=== PATIENT | male | born 1930 | race Caucasian/White ===

== ENCOUNTER 2016-03-13 21:10 | Inpatient (IN) | payer MEDICARE, BC ==
[2016-03-13 21:26] LABS: BASOPHILS % (AUTO) 1 % (0-3); EOSINOPHILS % (AUTO) 3 % (0-9); HEMATOCRIT 43 % (39-53); MEAN CORPUSCULAR HGB CONC 35.5 gm/dl (32.0-36.0); MONOCYTES % (AUTO) 15.5 % (0-12); NEUTROPHILS % (AUTO) 58.3 % (37-80)
[2016-03-13 21:30] LABS: CALCIUM 9.2 mg/dl (8.5-10.1); POTASSIUM 4.1 mMol/L (3.5-5.1)
[2016-03-13] MEDS: SODIUM CHLORIDE 0.9% 1000ML 1,000 ML IV SCH (22:00)
[2016-03-13] MEDS ORDERED: NITROGLYCERIN 0.4 MG TAB SL PRN (23:16)
[2016-03-13] MEDS ORDERED: ALBUTEROL HFA 60 PUFF/INHALER INH PRN (23:16)
[2016-03-13] MEDS ORDERED: PATIENT EDUCATION 1 MISC PRN (23:57)
[2016-03-14] MEDS ORDERED: ACETAMINOPHEN 325 MG PO PRN (01:08)
[2016-03-14] MEDS ORDERED: RANITIDINE HCL 150 MG TAB PO SCH (09:00)
[2016-03-14] MEDS: QUETIAPINE FUMARATE 25 MG TAB PO SCH (10:06)
[2016-03-14] MEDS: POTASSIUM CHLORIDE 10 MEQ TER PO SCH (10:08)
[2016-03-14] MEDS: CLOPIDOGREL 75 MG TAB PO SCH (10:09)
[2016-03-14] MEDS: FUROSEMIDE 20 MG TAB PO SCH (10:09)
[2016-03-14] MEDS: FAMOTIDINE 20 MG TAB PO SCH ×2 (10:32→20:37)
[2016-03-14] MEDS: SODIUM CHLORIDE 0.9% 1000ML 1,000 ML IV SCH (10:32)
[2016-03-14] MEDS: DULOXETINE HCL 30 MG CAPSULE.DR PO SCH ×2 (11:16→17:09)
[2016-03-14] MEDS: CEFDINIR 300 MG CAP PO SCH ×3 (11:17→20:52)
[2016-03-14] MEDS: ATORVASTATIN 10 MG TAB PO SCH (20:36)
[2016-03-14] MEDS: TEMAZEPAM 15MG 15 MG CAP PO PRN ×2 (21:16→22:44)
[2016-03-15] MEDS: SODIUM CHLORIDE 0.9% 1000ML 1,000 ML IV SCH ×2 (01:20→15:07)
[2016-03-15] MEDS: POTASSIUM CHLORIDE 10 MEQ TER PO SCH (09:10)
[2016-03-15] MEDS: DULOXETINE HCL 30 MG CAPSULE.DR PO SCH (09:10)
[2016-03-15] MEDS: FUROSEMIDE 20 MG TAB PO SCH (09:12)
[2016-03-15] MEDS: FAMOTIDINE 20 MG TAB PO SCH ×2 (09:13→20:35)
[2016-03-15] MEDS: CLOPIDOGREL 75 MG TAB PO SCH (09:13)
[2016-03-15] MEDS: QUETIAPINE FUMARATE 25 MG TAB PO SCH (09:13)
[2016-03-15] MEDS: CEFDINIR 300 MG CAP PO SCH ×2 (09:14→20:34)
[2016-03-15] MEDS: HEPARIN SODIUM 5000 U/ML SOL SC SCH ×2 (13:06→22:08)
[2016-03-15] MEDS: ASPIRIN 81 MG CHEWABLE CTB PO SCH (13:07)
[2016-03-15] MEDS: ATORVASTATIN 10 MG TAB PO SCH (20:34)
[2016-03-15] MEDS: TEMAZEPAM 15MG 15 MG CAP PO PRN (20:34)
[2016-03-16] MEDS: TEMAZEPAM 15MG 15 MG CAP PO PRN ×2 (01:21→20:05)
[2016-03-16] MEDS: SODIUM CHLORIDE 0.9% 1000ML 1,000 ML IV SCH (04:32)
[2016-03-16 08:00] LABS: ALBUMIN 3.3 gm/dl (3.4-5.0); CALCIUM 8.8 mg/dl (8.5-10.1); POTASSIUM 3.9 mMol/L (3.5-5.1)
[2016-03-16 08:05] LABS: BASOPHILS % (AUTO) 1 % (0-3); EOSINOPHILS % (AUTO) 7 % (0-9); HEMATOCRIT 41 % (39-53); MEAN CORPUSCULAR HGB CONC 34.5 gm/dl (32.0-36.0); MONOCYTES % (AUTO) 13.4 % (0-12); NEUTROPHILS % (AUTO) 53.9 % (37-80)
[2016-03-16] MEDS ORDERED: DOCUSATE SODIUM 100 MG SGL PO PRN (08:10)
[2016-03-16] MEDS: POTASSIUM CHLORIDE 10 MEQ TER PO SCH (09:04)
[2016-03-16] MEDS: DULOXETINE HCL 30 MG CAPSULE.DR PO SCH (09:04)
[2016-03-16] MEDS: FUROSEMIDE 20 MG TAB PO SCH (09:05)
[2016-03-16] MEDS: CEFDINIR 300 MG CAP PO SCH ×2 (09:06→20:05)
[2016-03-16] MEDS: CLOPIDOGREL 75 MG TAB PO SCH (09:06)
[2016-03-16] MEDS: FAMOTIDINE 20 MG TAB PO SCH ×2 (09:07→20:05)
[2016-03-16] MEDS: QUETIAPINE FUMARATE 25 MG TAB PO SCH (09:07)
[2016-03-16] MEDS: ASPIRIN 81 MG CHEWABLE CTB PO SCH (09:18)
[2016-03-16] MEDS: SENNOSIDES A AND B 8.6 MG TAB PO SCH ×2 (09:18→20:05)
[2016-03-16] MEDS: HEPARIN SODIUM 5000 U/ML SOL SC SCH ×2 (11:30→22:37)
[2016-03-16] MEDS: SODIUM CHLORIDE 0.9% FLUSH 10 ML SOL IV PRN ×2 (13:17→20:06)
[2016-03-16] MEDS: ATORVASTATIN 10 MG TAB PO SCH (20:04)
[2016-03-17] MEDS: TEMAZEPAM 15MG 15 MG CAP PO PRN (00:18)
[2016-03-17 00:25] VITALS: RESP 20
[2016-03-17 08:09] VITALS: BP 149/79; PULSE 60; TEMP 97.6; O2SAT 92
[2016-03-17] MEDS: FAMOTIDINE 20 MG TAB PO SCH (08:41)
[2016-03-17] MEDS: CEFDINIR 300 MG CAP PO SCH (08:41)
[2016-03-17] MEDS: POTASSIUM CHLORIDE 10 MEQ TER PO SCH (08:41)
[2016-03-17] MEDS: QUETIAPINE FUMARATE 25 MG TAB PO SCH (08:42)
[2016-03-17] MEDS: CLOPIDOGREL 75 MG TAB PO SCH (08:42)
[2016-03-17] MEDS: DULOXETINE HCL 30 MG CAPSULE.DR PO SCH (08:42)
[2016-03-17] MEDS: FUROSEMIDE 20 MG TAB PO SCH (08:43)
[2016-03-17] MEDS: ASPIRIN 81 MG CHEWABLE CTB PO SCH (08:46)
[2016-03-17] MEDS: SENNOSIDES A AND B 8.6 MG TAB PO SCH (08:46)
[2016-03-17] MEDS: HEPARIN SODIUM 5000 U/ML SOL SC SCH (10:32)
== END 2016-03-17 13:55 | DRG 65 ==
LOC: ED 21:10 → ACUTE CARE 22:46 → OBSVTOIN 03-14 12:00
PROVIDERS: ADMIT Family Medicine; ATTEND Family Medicine
DX: I63.9 Cerebral infarction, unspecified (principal); R53.1 Weakness; G81.94 Hemiplegia, unspecified affecting left nondominant side; F05 Delirium due to known physiological condition; R29.704 NIHSS score 4; R47.1 Dysarthria and anarthria; R29.810 Facial weakness; R13.10 Dysphagia, unspecified; K59.00 Constipation, unspecified
CPT/HCPCS: 36415; 70450; 70551; 80048; 80053; 85025; 85610; 85730; 93005; 93012; 96365; 99232; 99233; 99291; J1644

== ENCOUNTER 2016-04-16 07:41 | Inpatient (IN) | payer MEDICARE, BC ==
[2016-04-16] MEDS ORDERED: ACETAMINOPHEN 325 MG PO ONE ×2 (08:19)
[2016-04-16] MEDS ORDERED: ACETAMINOPHEN 325 MG ONE (08:20)
[2016-04-16 08:34] LABS: HEMATOCRIT 46 % (39-53); MEAN CORPUSCULAR VOLUME 86 fL (80-100)
[2016-04-16 08:48] LABS: BASOPHILS % (MANUAL) 0 % (0-3); EOSINOPHILS % (MANUAL) 0 % (0-9); LYMPHOCYTES % (MANUAL) 13 % (10-50); OVALOCYTES PRESENT
[2016-04-16 08:51] LABS: ALBUMIN 3.1 gm/dl (3.4-5.0); CALCIUM 9.2 mg/dl (8.5-10.1); POTASSIUM 4.2 mMol/L (3.5-5.1)
[2016-04-16] MEDS ORDERED: MORPHINE SULFATE 10 MG/ML SOL IV ONE (08:53)
[2016-04-16] MEDS: SODIUM CHLORIDE 0.9% FLUSH 10 ML SOL IV PRN ×2 (09:00→10:51)
[2016-04-16] MEDS ORDERED: MORPHINE SULFATE 10 MG/ML SOL ONE (09:05)
[2016-04-16 09:16] LABS: ABG PH 7.45 (7.35-7.45)
[2016-04-16] MEDS ORDERED: ALBUTEROL/IPRATROPIUM 1 VIAL SOL INH ONE (09:24)
[2016-04-16] MEDS ORDERED: ALBUTEROL/IPRATROPIUM 1 VIAL SOL ONE (09:25)
[2016-04-16] MEDS ORDERED: ALBUTEROL NEB SOL 2.5MG/3ML 1 VIAL SOL NEB PRN (09:55)
[2016-04-16] MEDS ORDERED: SOLUMEDROL 125 MG/2 ML 125 MG/2 ML PDS IV ONE (11:00)
[2016-04-16] MEDS ORDERED: ACETAMINOPHEN 325 MG PO PRN (11:45)
[2016-04-16] MEDS ORDERED: ALBUTEROL/IPRATROPIUM 1 VIAL SOL INH SCH (11:45)
[2016-04-16] MEDS: ALBUTEROL/IPRATROPIUM 1 VIAL SOL INH SCH ×3 (12:59→20:44)
[2016-04-16] MEDS: ENOXAPARIN 80 MG SOL SC SCH (14:28)
[2016-04-16 18:27] LABS: APPEARANCE,URINE Clear; BILIRUBIN,URINE NEGATIVE (NEGATIVE); COLOR,URINE Dark yellow; GLUCOSE, URINE (UA) NEGATIVE (NEGATIVE); KETONES,URINE NEGATIVE (NEGATIVE); LEUKOCYTE ESTERASE ,URINE NEGATIVE (NEGATIVE); NITRATE,URINE NEGATIVE (NEGATIVE); OCCULT BLOOD,URINE NEGATIVE (NEG-TRACE)
[2016-04-16 18:46] LABS: RBC,URINE NEGATIVE (0-3AV/HPF); WBC,URINE NEGATIVE (0-5AV/HPF)
[2016-04-16] MEDS: FAMOTIDINE 20 MG TAB PO SCH (20:45)
[2016-04-16] MEDS: ATORVASTATIN 10 MG TAB PO SCH (20:45)
[2016-04-16] MEDS: QUETIAPINE FUMARATE 25 MG TAB PO SCH (20:45)
[2016-04-17] MEDS: ENOXAPARIN 80 MG SOL SC SCH ×2 (00:59→13:58)
[2016-04-17] MEDS: SODIUM CHLORIDE 0.9% FLUSH 10 ML SOL IV PRN (06:03)
[2016-04-17] MEDS ORDERED: PATIENT EDUCATION 1 MISC PRN (08:44)
[2016-04-17] MEDS ORDERED: ENOXAPARIN 80 MG SOL SC SCH (09:00)
[2016-04-17] MEDS: FUROSEMIDE 20 MG TAB PO SCH (09:29)
[2016-04-17] MEDS: POTASSIUM CHLORIDE 10 MEQ TER PO SCH (09:29)
[2016-04-17] MEDS: DULOXETINE 30 MG PO SCH (09:29)
[2016-04-17] MEDS: FAMOTIDINE 20 MG TAB PO SCH ×2 (09:30→20:26)
[2016-04-17] MEDS: ALBUTEROL/IPRATROPIUM 1 VIAL SOL INH SCH ×4 (09:33→20:21)
[2016-04-17] MEDS: SODIUM CHLORIDE 0.9% FLUSH 10 ML SOL IV SCH ×2 (10:39→18:07)
[2016-04-17] MEDS ORDERED: WARFARIN SODIUM 5 MG TAB PO SCH (18:00)
[2016-04-17] MEDS: ATORVASTATIN 10 MG TAB PO SCH (20:23)
[2016-04-17] MEDS: QUETIAPINE FUMARATE 25 MG TAB PO SCH (20:26)
[2016-04-18] MEDS: ENOXAPARIN 80 MG SOL SC SCH ×2 (01:48→12:30)
[2016-04-18] MEDS: SODIUM CHLORIDE 0.9% FLUSH 10 ML SOL IV SCH ×2 (01:48→09:34)
[2016-04-18 07:06] LABS: CALCIUM 8.6 mg/dl (8.5-10.1); POTASSIUM 3.8 mMol/L (3.5-5.1)
[2016-04-18 07:24] LABS: BASOPHILS % (AUTO) 1 % (0-3); EOSINOPHILS % (AUTO) 0 % (0-9); HEMATOCRIT 38 % (39-53); MEAN CORPUSCULAR HGB CONC 36.3 gm/dl (32.0-36.0); MEAN CORPUSCULAR VOLUME 86 fL (80-100); MONOCYTES % (AUTO) 11.6 % (0-12); NEUTROPHILS % (AUTO) 74.9 % (37-80)
[2016-04-18 08:42] VITALS: RESP 20; TEMP 97.2
[2016-04-18] MEDS: DULOXETINE 30 MG PO SCH (09:15)
[2016-04-18] MEDS: FUROSEMIDE 20 MG TAB PO SCH (09:16)
[2016-04-18] MEDS: POTASSIUM CHLORIDE 10 MEQ TER PO SCH (09:16)
[2016-04-18] MEDS: ALBUTEROL/IPRATROPIUM 1 VIAL SOL INH SCH ×2 (09:16→12:31)
[2016-04-18] MEDS: FAMOTIDINE 20 MG TAB PO SCH (09:16)
[2016-04-18 10:48] VITALS: BP 130/81
[2016-04-18 12:40] VITALS: PULSE 72; O2SAT 96
== END 2016-04-18 12:55 | DRG 176 ==
LOC: ED 07:41 → UNDOADMIN 09:53 → ACUTE CARE 09:53
PROVIDERS: ADMIT Family Medicine; ATTEND Family Medicine
DX: R06.00 Dyspnea, unspecified (principal); J44.9 Chronic obstructive pulmonary disease, unspecified; R50.9 Fever, unspecified; R07.81 Pleurodynia; R06.02 Shortness of breath; I26.99 Other pulmonary embolism without acute cor pulmonale
CPT/HCPCS: 36415; 36600; 71010; 71275; 80048; 80053; 81001; 82150; 82803; 83880; 84484; 85007; 85025; 85027; 85378; 85610; 87040; 87804; 93005; 93012; 94150; 94640; 94760; 96374; 99284; 99291; J1650; J2270; J2930; J7603; J7620

== ENCOUNTER 2016-12-06 22:27 | Observation (INO) | payer MEDICARE, BC ==
[2016-12-06 23:30] LABS: BASOPHILS % (AUTO) 1 % (0-3); EOSINOPHILS % (AUTO) 6 % (0-9); HEMATOCRIT 40 % (39-53); MEAN CORPUSCULAR HGB CONC 34.5 gm/dl (32.0-36.0); MEAN CORPUSCULAR VOLUME 87 fL (80-100); MONOCYTES % (AUTO) 14.1 % (0-12); NEUTROPHILS % (AUTO) 57.5 % (37-80)
[2016-12-06 23:55] LABS: ALBUMIN 3.3 gm/dl (3.4-5.0); CALCIUM 8.7 mg/dl (8.5-10.1)
[2016-12-07] MEDS ORDERED: SENNOSIDES A AND B 8.6 MG TAB PO PRN (01:07)
[2016-12-07] MEDS ORDERED: HYPROMELLOSE EACHEYE PRN (01:07)
[2016-12-07] MEDS ORDERED: MAGNESIUM HYDROXIDE 30 ML SUS PO PRN (01:07)
[2016-12-07] MEDS ORDERED: DEXTRAN EACHEYE PRN (01:07)
[2016-12-07] MEDS ORDERED: WARFARIN SODIUM 7.5 MG TAB PO SCH ×2 (01:15→18:00)
[2016-12-07 07:29] LABS: BASOPHILS % (AUTO) 1 % (0-3); EOSINOPHILS % (AUTO) 4 % (0-9); HEMATOCRIT 40 % (39-53); MEAN CORPUSCULAR HGB CONC 34.7 gm/dl (32.0-36.0); MEAN CORPUSCULAR VOLUME 87 fL (80-100); MONOCYTES % (AUTO) 11.5 % (0-12); NEUTROPHILS % (AUTO) 72.7 % (37-80)
[2016-12-07 07:48] LABS: CALCIUM 8.6 mg/dl (8.5-10.1); GLOM FILT RATE 76 mL/min (>60); SODIUM 142 mMol/L (136-145)
[2016-12-07] MEDS ORDERED: [UNRECOGNIZED DRUG - OTHER] PO SCH (09:00)
[2016-12-07] MEDS ORDERED: RANITIDINE HCL 150 MG TAB PO SCH (09:00)
[2016-12-07] MEDS ORDERED: DOCUSATE SODIUM PO SCH (09:00)
[2016-12-07] MEDS: SENNOSIDES A AND B 8.6 MG TAB PO SCH ×2 (09:03→21:43)
[2016-12-07] MEDS: DULOXETINE HCL 30 MG CAPSULE.DR PO SCH (09:03)
[2016-12-07] MEDS: FAMOTIDINE 20 MG TAB PO SCH ×2 (09:03→21:43)
[2016-12-07] MEDS: ACETAMINOPHEN 325 MG PO SCH ×4 (09:03→21:44)
[2016-12-07] MEDS: ZINC PO SCH ×2 (09:04→21:43)
[2016-12-07] MEDS: [UNRECOGNIZED DRUG - OTHER] PO SCH ×2 (09:04→21:43)
[2016-12-07] MEDS: COPPER PO SCH ×2 (09:04→21:43)
[2016-12-07] MEDS: VIT C PO SCH ×2 (09:04→21:43)
[2016-12-07] MEDS: VIT E PO SCH ×2 (09:04→21:43)
[2016-12-07] MEDS: VIT A PO SCH ×2 (09:04→21:43)
[2016-12-07] MEDS ORDERED: ENOXAPARIN 40 MG SOL SC ONE (10:45)
[2016-12-07] MEDS ORDERED: WARFARIN SODIUM 5 MG TAB PO ONE (10:45)
[2016-12-07] MEDS ORDERED: SODIUM CHLORIDE 0.9% 100 ML 100 ML IV ONE ×3 (11:56→22:43)
[2016-12-07] MEDS ORDERED: AMPICILLIN/SULBACTAM 3 GM PDS ONE ×3 (11:56→22:43)
[2016-12-07] MEDS: SODIUM CHLORIDE 0.9% FLUSH 10 ML SOL IV SCH ×5 (12:00→22:55)
[2016-12-07] MEDS: AMPICILLIN/SULBACTAM 3 GM PDS 3 GM in SODIUM CHLORIDE 0.9% 100 ML 100 ML IV SCH ×3 (12:19→22:54)
[2016-12-07] MEDS ORDERED: QUETIAPINE FUMARATE 25 MG TAB PO SCH (21:00)
[2016-12-07] MEDS ORDERED: ATORVASTATIN CALCIUM 80 MG TAB PO SCH (21:00)
[2016-12-07] MEDS ORDERED: ATORVASTATIN 10 MG TAB ONE (21:41)
[2016-12-08] MEDS: SODIUM CHLORIDE 0.9% FLUSH 10 ML SOL IV SCH ×2 (04:35→11:18)
[2016-12-08] MEDS: AMPICILLIN/SULBACTAM 3 GM PDS 3 GM in SODIUM CHLORIDE 0.9% 100 ML 100 ML IV SCH ×2 (04:35→11:18)
[2016-12-08 07:32] LABS: BASOPHILS % (AUTO) 1 % (0-3); EOSINOPHILS % (AUTO) 9 % (0-9); HEMATOCRIT 40 % (39-53); MEAN CORPUSCULAR HGB CONC 35.3 gm/dl (32.0-36.0); MEAN CORPUSCULAR VOLUME 87 fL (80-100); MONOCYTES % (AUTO) 15.4 % (0-12); NEUTROPHILS % (AUTO) 47.1 % (37-80)
[2016-12-08 08:03] VITALS: RESP 20; TEMP 98.3
[2016-12-08] MEDS: DULOXETINE HCL 30 MG CAPSULE.DR PO SCH (09:45)
[2016-12-08] MEDS: FAMOTIDINE 20 MG TAB PO SCH (09:46)
[2016-12-08] MEDS: VIT C PO SCH (09:47)
[2016-12-08] MEDS: VIT A PO SCH (09:47)
[2016-12-08] MEDS: ZINC PO SCH (09:47)
[2016-12-08] MEDS: SENNOSIDES A AND B 8.6 MG TAB PO SCH (09:47)
[2016-12-08] MEDS: [UNRECOGNIZED DRUG - OTHER] PO SCH (09:47)
[2016-12-08] MEDS: VIT E PO SCH (09:47)
[2016-12-08] MEDS: ACETAMINOPHEN 325 MG PO SCH ×2 (09:47→13:49)
[2016-12-08] MEDS: COPPER PO SCH (09:47)
[2016-12-08] MEDS ORDERED: PEG-400/PROPYLENE GLYCOL 1 DROP SOL EACHEYE PRN (10:45)
[2016-12-08] MEDS ORDERED: METOPROLOL SUCCINATE 50 MG TER PO SCH (10:45)
[2016-12-08 10:46] VITALS: BP 147/86; PULSE 41; O2SAT 92
[2016-12-08] MEDS ORDERED: PATIENT EDUCATION 1 MISC PRN (11:04)
[2016-12-08] MEDS ORDERED: INFLUENZA HIGH DOSE VACCINE 0.5 ML SUS IM ONE (16:13)
[2016-12-08] MEDS ORDERED: ATORVASTATIN 10 MG TAB PO SCH (21:00)
[2016-12-09] MEDS ORDERED: WARFARIN SODIUM 5 MG TAB PO SCH ×2 (01:07→18:00)
== END 2016-12-08 17:00 | DRG 206 ==
LOC: ED 22:27 → ACUTE CARE 12-07 00:29
PROVIDERS: ADMIT Emergency Medicine; ATTEND Emergency Medicine
DX: T17.928A Food in respiratory tract, part unspecified causing other injury, initial encounter (principal); I50.9 Heart failure, unspecified; R00.1 Bradycardia, unspecified; I44.0 Atrioventricular block, first degree; R79.82 Elevated C-reactive protein (CRP); Z79.01 Long term (current) use of anticoagulants; T45.7X6A Underdosing of anticoagulant antagonist, vitamin K and other coagulants, initial encounter; Z91.138 Patient's unintentional underdosing of medication regimen for other reason
CPT/HCPCS: 36415; 71010; 80048; 80053; 83880; 84484; 85025; 85610; 90662; 93005; 93012; 94762; 99224; 99284; J0295; J1650; G0008

== ENCOUNTER 2016-12-11 09:03 | Emergency (ER) | payer MEDICARE, BC ==
[2016-12-11 10:09] LABS: BASOPHILS % (AUTO) 1 % (0-3); EOSINOPHILS % (AUTO) 6 % (0-9); HEMATOCRIT 43 % (39-53); MEAN CORPUSCULAR VOLUME 88 fL (80-100); MONOCYTES % (AUTO) 15.7 % (0-12); NEUTROPHILS % (AUTO) 69.4 % (37-80)
[2016-12-11 10:20] LABS: CALCIUM 8.4 mg/dl (8.5-10.1); GLOM FILT RATE 74 mL/min (>60); POTASSIUM 3.9 mMol/L (3.5-5.1); SODIUM 141 mMol/L (136-145)
[2016-12-11 11:10] VITALS: TEMP 98.7
[2016-12-11 11:43] VITALS: RESP 20; O2SAT 92
[2016-12-11 11:49] VITALS: BP 124/65; PULSE 67
== END 2016-12-11 11:30 | disposition short-term general hospital (02) | DRG 310 ==
LOC: ED 09:03
DX: R00.1 Bradycardia, unspecified (principal); I50.9 Heart failure, unspecified; Z79.01 Long term (current) use of anticoagulants
CPT/HCPCS: 36415; 71010; 80048; 83880; 84484; 85025; 85610; 93005; 99284

== ENCOUNTER 2016-12-15 16:42 | Emergency (ER) | payer MEDICARE, BC ==
[2016-12-15 17:28] VITALS: BP 154/69; TEMP 97.6
[2016-12-15 18:26] VITALS: PULSE 77; RESP 23; O2SAT 92
== END 2016-12-15 18:12 | DRG 316 ==
LOC: ED 16:42
DX: R00.8 Other abnormalities of heart beat (principal)
CPT/HCPCS: 93005; 99283

== ENCOUNTER 2017-07-02 08:31 | Outpatient (CLI) | payer MEDICARE, BC ==
[2016-12-15 18:26] VITALS: O2SAT 92
== END 2017-07-02 08:32 | disposition home or self-care (01) | DRG 554 ==
LOC: CONVCARE 08:31
PROVIDERS: ATTEND Orthopaedic Surgery
DX: M16.11 Unilateral primary osteoarthritis, right hip (principal); M25.551 Pain in right hip

== ENCOUNTER 2018-06-24 16:45 | Observation (INO) | payer BC ==
[2018-06-24] MEDS ORDERED: ALBUTEROL/IPRATROPIUM 1 VIAL SOL INH ONE (17:17)
[2018-06-24 17:28] LABS: BASOPHILS % (AUTO) 0 % (0-3); EOSINOPHILS % (AUTO) 3 % (0-9); HEMATOCRIT 45 % (39-53); HEMOGLOBIN 14.6 gm/dl (13.5-17.7); LYMPHOCYTES % (AUTO) 11.3 % (10-50); MEAN CORPUSCULAR HEMOGLOBIN 29.5 pg (27.0-32.0); MEAN CORPUSCULAR HGB CONC 32.8 gm/dl (32.0-36.0); MEAN CORPUSCULAR VOLUME 90 fL (80-100); MONOCYTES % (AUTO) 12.6 % (0-12); NEUTROPHILS % (AUTO) 72.7 % (37-80)
[2018-06-24 17:35] LABS: CALCIUM 8.7 mg/dl (8.5-10.1); CARBON DIOXIDE 29.7 mEq/L (21-32); CREATININE 0.95 mg/dl (0.80-1.30); POTASSIUM 3.9 mMol/L (3.5-5.1)
[2018-06-24] MEDS ORDERED: ALBUTEROL/IPRATROPIUM 1 VIAL SOL ONE (17:39)
[2018-06-24 18:32] LABS: APPEARANCE,URINE Clear; BILIRUBIN,URINE NEGATIVE (NEGATIVE); COLOR,URINE Yellow; GLUCOSE, URINE (UA) NEGATIVE (NEGATIVE); KETONES,URINE NEGATIVE (NEGATIVE); LEUKOCYTE ESTERASE ,URINE NEGATIVE (NEGATIVE); NITRATE,URINE NEGATIVE (NEGATIVE); OCCULT BLOOD,URINE TRACE INTACT (NEG-TRACE)
[2018-06-24 18:52] LABS: BACTERIA 1+ (< 1+); CRYSTALS NEGATIVE (0-3 AVE/HPF); RBC,URINE 0-2 (0-3AV/HPF); WBC,URINE 0-2 (0-5AV/HPF)
[2018-06-24] MEDS ORDERED: TRAMADOL HYDROCHLORIDE 50 MG TAB PO PRN (19:55)
[2018-06-24] MEDS ORDERED: ACETAMINOPHEN 325 MG PO PRN (19:55)
[2018-06-24] MEDS ORDERED: BISACODYL 10 MG SUP PR PRN (19:55)
[2018-06-24] MEDS ORDERED: MAGNESIUM HYDROXIDE 30 ML SUS PO PRN (19:55)
[2018-06-24] MEDS ORDERED: AZITHROMYCIN 250 MG TAB PO ONE (19:56)
[2018-06-24] MEDS ORDERED: WARFARIN SODIUM 2.5 MG TAB PO SCH (20:00)
[2018-06-24] MEDS ORDERED: ATORVASTATIN CALCIUM 80 MG TAB PO SCH (21:00)
[2018-06-24] MEDS ORDERED: GABAPENTIN 100 MG CAP PO SCH (21:00)
[2018-06-24] MEDS ORDERED: QUETIAPINE FUMARATE 25 MG TAB PO SCH (21:00)
[2018-06-24] MEDS: ALBUTEROL/IPRATROPIUM 1 VIAL SOL INH SCH (21:03)
[2018-06-24] MEDS: DOCUSATE SODIUM 100 MG SGL PO SCH (21:07)
[2018-06-24] MEDS: POLYETHYLENE GLYCOL 17 GM/1 TBS PDS PO SCH (21:07)
[2018-06-24] MEDS: SENNOSIDES A AND B 8.6 MG TAB PO SCH (21:07)
[2018-06-24] MEDS: [UNRECOGNIZED DRUG - OTHER] PO SCH (21:08)
[2018-06-24] MEDS: ZINC PO SCH (21:08)
[2018-06-24] MEDS: VIT A PO SCH (21:08)
[2018-06-24] MEDS: VIT E PO SCH (21:08)
[2018-06-24] MEDS: COPPER PO SCH (21:08)
[2018-06-24] MEDS: VIT C PO SCH (21:08)
[2018-06-24] MEDS: SODIUM CHLORIDE 0.9% FLUSH 10 ML SOL IV PRN (21:28)
[2018-06-25] MEDS: ALBUTEROL/IPRATROPIUM 1 VIAL SOL INH SCH ×4 (00:35→11:37)
[2018-06-25] MEDS: SODIUM CHLORIDE 0.9% FLUSH 10 ML SOL IV SCH ×2 (05:35→14:05)
[2018-06-25 08:34] VITALS: BP 135/75; TEMP 98.3
[2018-06-25] MEDS ORDERED: SERTRALINE HYDROCHLORIDE 50 MG TAB PO SCH (09:00)
[2018-06-25] MEDS ORDERED: RANITIDINE HCL 150 MG TAB PO SCH (09:00)
[2018-06-25] MEDS ORDERED: SPIRONOLACTONE 25 MG TAB PO SCH (09:00)
[2018-06-25] MEDS ORDERED: DULOXETINE HCL 30 MG CAPSULE.DR PO SCH (09:00)
[2018-06-25] MEDS ORDERED: BUMETANIDE 1 MG TAB PO SCH (09:00)
[2018-06-25] MEDS: DOCUSATE SODIUM 100 MG SGL PO SCH (09:12)
[2018-06-25] MEDS: VIT C PO SCH (09:13)
[2018-06-25] MEDS: VIT E PO SCH (09:13)
[2018-06-25] MEDS: ZINC PO SCH (09:13)
[2018-06-25] MEDS: SENNOSIDES A AND B 8.6 MG TAB PO SCH ×2 (09:13→14:26)
[2018-06-25] MEDS: [UNRECOGNIZED DRUG - OTHER] PO SCH (09:13)
[2018-06-25] MEDS: POLYETHYLENE GLYCOL 17 GM/1 TBS PDS PO SCH (09:13)
[2018-06-25] MEDS: COPPER PO SCH (09:13)
[2018-06-25] MEDS: VIT A PO SCH (09:13)
[2018-06-25] MEDS: SODIUM CHLORIDE 0.9% FLUSH 10 ML SOL IV PRN (09:36)
[2018-06-25] MEDS ORDERED: FAMOTIDINE 20 MG TAB PO SCH (10:15)
[2018-06-25 13:05] VITALS: PULSE 68; RESP 24; O2SAT 93
[2018-06-25] MEDS ORDERED: WARFARIN SODIUM 5 MG TAB PO SCH (20:00)
[2018-06-25] MEDS ORDERED: ATORVASTATIN CALCIUM 80 MG TAB PO SCH (21:00)
== END 2018-06-25 15:00 | DRG 153 ==
LOC: ED 16:45 → ACUTE CARE 19:30
PROVIDERS: ADMIT Family Medicine; ATTEND Family Medicine
DX: J06.9 Acute upper respiratory infection, unspecified (principal); Z79.01 Long term (current) use of anticoagulants; R06.2 Wheezing; R50.9 Fever, unspecified; R06.02 Shortness of breath; F03.90 Unspecified dementia, unspecified severity, without behavioral disturbance, psychotic disturbance, mood disturbance, and anxiety; J40 Bronchitis, not specified as acute or chronic
CPT/HCPCS: 36415; 71045; 80048; 81001; 85025; 87430; 93005; 94150; 99219; 99284; A9270-GY